=== PATIENT | female | born 1950 | race Caucasian/White ===

== ENCOUNTER 2019-09-27 11:32 | Emergency (ER) | payer MEDICARE ==
[2019-09-27] MEDS ORDERED: Ketorolac 30 MG/ML SDV IM ONE (12:10)
--- NOTE | 2019-09-27 14:06 | EDM.PDOC ---
ED HPI GENERAL MEDICAL PROBLEM - General Chief Complaint: Back Pain or Injury Stated Complaint: BACK PAIN Time Seen by Provider: 09/27/19 11:48 Source of Information: Reports: Patient, RN History Limitations: Reports: No Limitations - History of Present Illness INITIAL COMMENTS - FREE TEXT/NARRATIVE: 69-year-old female who presents to the ER with lower bilateral back pain that radiates into her groin. Patient reports symptoms began 5 days ago when she was cleaning the dishes. She denies any falls, injury, trauma to her back. Patient states she has never had such a pain before. she rates her pain as a 7 on a 10 today. She reports she has tried [id number] medications with little relief. She did mention that pain is better today. she denies any history of back problems. She states she has been told she has arthritis in her back. She admits to have medical problems that have been manage fairly well and she is due to see her doctor in 6 months. She denies any dysuria, frequency or urgency.she denies any fevers or chills. She denies any saddle anesthesia. Bilateral Lower Back Pain Score (Numeric/FACES): 6 - Related Data Allergies Allergy/AdvReac Type Severity Reaction Status Date / Time No Known Allergies Allergy Verified 09/27/19 11:43 Home Meds: Home Meds Aspirin [Halfprin] 81 mg PO DAILY 09/27/19 [History] Cholecalciferol (Vitamin D3) [Vitamin D3] 2,000 unit PO DAILY 09/27/19 [History] Glimepiride [Amaryl] 2 mg PO WITHBREAKFAST 09/27/19 [History] Losartan/Hydrochlorothiazide [Losartan-HCTZ 100-12.5 MG] 1 each PO DAILY [History] Omeprazole 20 mg PO DAILY 09/27/19 [History] atorvaSTATin Calcium [Atorvastatin Calcium] 20 mg PO DAILY 09/27/19 [History] metFORMIN HCl [Glucophage Xr] 1,000 mg PO BID 09/27/19 [History] Past Medical History HEENT History: Reports: Impaired Vision Cardiovascular History: Reports: High Cholesterol, Hypertension Gastrointestinal History: Reports: GERD Musculoskeletal History: Reports: Fracture Endocrine/Metabolic History: Reports: Diabetes, Type II - Infectious Disease History Infectious Disease History: Reports: Chicken Pox Social & Family History - Tobacco Use Smoking Status *Q: Never Smoker Second Hand Smoke Exposure: No - Recreational Drug Use Recreational Drug Use: No ED ROS GENERAL - Review of Systems Review Of Systems: Comprehensive ROS is negative, except as noted in HPI. ED EXAM,LOWER BACK PAIN/INJURY - Physical Exam Exam: See Below Exam Limited By: No Limitations General Appearance: Alert, Moderate Distress Respiratory/Chest: No Respiratory Distress, Lungs Clear, Normal Breath Sounds, No Accessory Muscle Use, Chest Non-Tender Cardiovascular: Normal Peripheral Pulses, Regular Rate, Rhythm, No Edema, No Gallop, No JVD, No Murmur, No Rub GI/Abdominal: Normal Bowel Sounds, Soft, Non-Tender, No Organomegaly, No Distention, No Abnormal Bruit, No Mass Back Exam: Normal Inspection, Full Range of Motion (with no discomfort noted with palpation) Extremities: Normal Inspection Neurological: Normal Mood/Affect, Normal Gait, Oriented x 3, Straight Leg Raise (L) (negative), Straight Leg Raise (R) (negative) DTR - Lower Extremities: 4+: Knee (L) Psychiatric: Normal Affect, Normal Mood Skin Exam: Warm Course - Vital Signs Last Recorded V/S: Last Vital Signs Temp 95.5 F 09/27/19 11:38 Pulse 100 09/27/19 11:38 Resp 18 09/27/19 11:38 BP 152/80 H 09/27/19 11:38 Pulse Ox 98 09/27/19 11:38 - Orders/Labs/Meds Orders: Active Orders 24 hr Category Date Time Status CULTURE URINE [RM] Stat Lab 09/27/19 11:52 Received Labs: Laboratory Tests 09/27/19 Range/Units 11:52 Urine Color Yellow (YELLOW) Urine Appearance Slightly cloudy (CLEAR) Urine pH 5.5 (5.0-9.0) Ur Specific [place] 1.020 (1.005-1.030) Urine Protein Negative (NEGATIVE) Urine Glucose (UA) Negative (NEGATIVE) Urine Ketones Negative (NEGATIVE) Urine Occult Blood Negative (NEGATIVE) Urine Nitrite Negative (NEGATIVE) Urine Bilirubin Negative (NEGATIVE) Urine Urobilinogen 0.2 (0.2-1.0) mg/dL Ur Leukocyte Esterase Trace H (NEGATIVE) Urine RBC 0-5 /HPF Urine WBC 5-10 H (0-5/HPF) /HPF Ur Epithelial Cells Rare (NOT SEEN) /HPF Amorphous Sediment Occasional (NOT SEEN) /HPF Urine Bacteria Few (0-FEW/HPF) /HPF Urine Mucus Not seen (NOT SEEN) /LPF Urinalysis Comment See note Meds: Medications Discontinued Medications Generic Name Dose Route Start Last Admin Trade Name Payton PRN Reason Stop Dose Admin Ketorolac Tromethamine 30 mg 09/27/19 12:10 09/27/19 12:34 Toradol IM 09/27/19 12:11 30 mg ONETIME ONE Administration - Radiology Interpretation Free Text/Narrative:: CT Lumbar Spine without contrast Vertebrae: There is generalized osteopenia. No fracture or dislocations. There is hypertrophy and degeneration of the facet joints. Normal alignment. Discs/spinal canal/neural foramina: the disc spaces are maintained. there are small marginal end plate osteophytes at multiple levels. There is sclerosis of both sacroiliac joints. - Re-Assessments/Exams Free Text/Narrative Re-Assessment/Exam: Toradol administered with mild relief reported. Reviewed CT results with patient as indicated in the chart. Rx for Prednisone send home with patient. Additional information included in the AVS. Departure - Departure Time of Disposition: 14:02 Disposition: Home, Self-Care 01 Condition: Fair Clinical Impression: Back pain Qualifiers: Back pain location: low back pain Chronicity: acute Back pain laterality: bilateral Sciatica presence: with sciatica Sciatica laterality: bilateral sciatica Qualified Code(s): M54.42 - Lumbago with sciatica, left side - Discharge Information *PRESCRIPTION DRUG MONITORING PROGRAM REVIEWED*: Not Applicable *COPY OF PRESCRIPTION DRUG MONITORING REPORT IN PATIENT [place]: Not Applicable Instructions: Back Exercises, [id number] Referrals: Esha Peres NP [Primary Care Provider] - Forms: ED Department Discharge Additional Instructions: Encouraged heat/Ice intermittently every 15 minutes/hr. Biofreeze massage at bedtime. RX for prednisone send with patient. Follow up with PCP in the clinic for a PT referral if symptoms fail to improve. Sepsis Event Note - Evaluation Sepsis Screening Result: No Definite Risk - Focused Exam Vital Signs: Vital Signs Temp Pulse Resp BP Pulse Ox 09/27/19 11:38 95.5 F 100 18 152/80 H 98 Date Exam was Performed: 09/27/19 Time Exam was Performed: 15:15 - My Orders Last 24 Hours: My Active Orders 09/27/19 11:52 CULTURE URINE [RM] Stat - Assessment/Plan Last 24 Hours: My Active Orders 09/27/19 11:52 CULTURE URINE [RM] Stat
== END 2019-09-27 14:10 | disposition home or self-care (01) ==
LOC: DL.ED 11:32
DX: M54.42 Lumbago with sciatica, left side (principal); E78.00 Pure hypercholesterolemia, unspecified; I10 Essential (primary) hypertension; E11.9 Type 2 diabetes mellitus without complications; K21.9 Gastro-esophageal reflux disease without esophagitis; Z79.899 Other long term (current) drug therapy; Z79.84 Long term (current) use of oral hypoglycemic drugs; Z79.82 Long term (current) use of aspirin
CPT/HCPCS: 72131; 81001; 87086; 87088; 87186; 96372; 99284; J1885; 99283

== ENCOUNTER 2021-10-18 13:20 | Emergency (ER) | payer MEDICARE ==
[2021-10-18 15:06] LABS: ANION GAP 13.1 mEq/L (7-13); CHLORIDE,CL 100 mmol/L (98-107); SODIUM,NA 137 mmol/L (136-145)
[2021-10-18] MEDS ORDERED: Lidocaine 5% Oint 35.44 GM Tube TOP ONE (15:56)
== END 2021-10-18 16:07 | disposition home or self-care (01) ==
LOC: DL.ED 13:20
DX: B02.9 Zoster without complications (principal); E78.00 Pure hypercholesterolemia, unspecified; I10 Essential (primary) hypertension; E11.9 Type 2 diabetes mellitus without complications; K21.9 Gastro-esophageal reflux disease without esophagitis; Z88.8 Allergy status to other drugs, medicaments and biological substances; Z79.82 Long term (current) use of aspirin; Z79.899 Other long term (current) drug therapy
CPT/HCPCS: 36415; 80053; 81001; 82150; 83690; 85025; 86140; 87086; 87088; 87186; A9270; 99284

== ENCOUNTER 2023-11-21 07:49 | Emergency (ER) | payer MEDICARE, OTHER ==
[2023-11-21] MEDS: Aspirin 81 MG Tab.Chew PO ONE (08:28)
[2023-11-21 08:38] LABS: BASOPHILS PERCENT AUTO 0.4 % (0.0-1.0); EOSINOPHILS PERCENT AUTO 4.5 % (1.0-3.0); HEMATOCRIT 40.5 % (37.0-47.0); HEMOGLOBIN 13.5 g/dL (12.0-16.0); LYMPHOCYTES PERCENT AUTO 25.7 % (20.5-50.1); MEAN CORPUSCULAR HEMOGLOBIN 31.6 pg (27.0-34.0); MEAN CORPUSCULAR HGB CONC 33.3 g/dL (33.0-35.0); MEAN CORPUSCULAR VOLUME 94.8 fL (80-100); MONOCYTES PERCENT AUTO 6.3 % (2-8); NEUTROPHILS PERCENT AUTO 63.1 % (42.2-75.2); PLATELET COUNT,PLT 132 10^3/uL (150-450); RED BLOOD CELL COUNT 4.27 10^6/uL (4.2-5.4); WHITE BLOOD CELL COUNT,WBC 4.9 10^3/uL (5.0-10.0)
[2023-11-21 08:58] LABS: A/G RATIO 1.6; ALBUMIN 4.1 g/dL (3.4-5.0); ANION GAP 14.8 mEq/L (7-13); BILIRUBIN TOTAL 0.5 mg/dL (0.2-1.0); CALCIUM 8.9 mg/dL (8.5-10.1); CREATININE 1.1 mg/dL (0.55-1.02); EST CRCL DRUG DOSING (CG) 37.12 mL/min; POTASSIUM,K 3.8 mmol/L (3.5-5.1); PROTEIN TOTAL,TP 6.7 g/dL (6.4-8.2)
== END 2023-11-21 10:30 | disposition home or self-care (01) ==
LOC: DL.ED 07:49
DX: G56.22 Lesion of ulnar nerve, left upper limb (principal); I10 Essential (primary) hypertension; E78.00 Pure hypercholesterolemia, unspecified; E11.9 Type 2 diabetes mellitus without complications; K21.9 Gastro-esophageal reflux disease without esophagitis; Z79.82 Long term (current) use of aspirin; Z79.899 Other long term (current) drug therapy; Z79.84 Long term (current) use of oral hypoglycemic drugs
CPT/HCPCS: 36415; 70450; 72125; 80053; 84484; 85025; 93005; 93010; 99284; A9270